=== PATIENT | female | born 1980 ===

== ENCOUNTER 2023-01-30 08:35 | Inpatient (IN) | payer OTHER ==
[~2023-01-30] VITALS: Ht 162.6 cm; Wt 81.6 kg
[2023-01-30] MEDS ORDERED: ELIQUIS5 MG PO (09:10)
[2023-01-30] MEDS ORDERED: SYNTHROID50 MCG PO (09:10)
[2023-02-05 20:47] LABS: HEMOGLOBIN 12.7 g/dL (12.0-15.00); MEAN CELL VOLUME 82.7 fL (80.00-100.00); MEAN CORPUSCULAR HEMOGLOBIN 27.7 pg (27.00-32.0); MEAN CORPUSCULAR HGB CONC 33.4 g/dl (32.0-36.0); PLATELET COUNT 198 K/uL (150-450); RED BLOOD COUNT 4.59 M/uL (4.00-6.00); RED CELL DISTRIBUTION WIDTH 13.8 % (11.5-14.5)
[2023-02-05 21:10] LABS: CALCIUM 8.2 mg/dL (8.5-10.1); CREATININE SERUM 0.64 mg/dL (0.55-1.02); GFR 100.81; POTASSIUM 3.29 mEq/L (3.5-5.1)
[2023-02-06 03:58] LABS: HEMATOCRIT 37.1 % (36.0-45.00); HEMOGLOBIN 12.5 g/dL (12.0-15.00); MEAN CELL VOLUME 81.7 fL (80.00-100.00); MEAN CORPUSCULAR HEMOGLOBIN 27.7 pg (27.00-32.0); MEAN CORPUSCULAR HGB CONC 33.9 g/dl (32.0-36.0); PLATELET COUNT 210 K/uL (150-450); RED BLOOD COUNT 4.54 M/uL (4.00-6.00); RED CELL DISTRIBUTION WIDTH 13.6 % (11.5-14.5)
[2023-02-06 04:16] LABS: CALCIUM 8.8 mg/dL (8.5-10.1); CREATININE SERUM 0.75 mg/dL (0.55-1.02); GFR 83.95; POTASSIUM 3.01 mEq/L (3.5-5.1)
== END 2023-02-07 12:06 | disposition home or self-care (01) | DRG 743 ==
LOC: O/R 02-05 06:07 → SURH 02-05 11:15 → OB/GYN 02-05 17:10 → SURH 02-05 19:00 → OB/GYN 02-07 12:06
PROVIDERS: Obstetrics & Gynecology; ADMIT Obstetrics & Gynecology Gynecologic Oncology; ATTEND Obstetrics & Gynecology Gynecologic Oncology
PROC: 0UT70ZZ Resection of Bilateral Fallopian Tubes, Open Approach (ICD-10-PCS; 2023-02-05)
PROC: 0DNW0ZZ Release Peritoneum, Open Approach (ICD-10-PCS; 2023-02-05)
PROC: 0UT90ZZ Resection of Uterus, Open Approach (ICD-10-PCS; principal; 2023-02-05 19:00)
DX: D25.0 Submucous leiomyoma of uterus (principal); N84.0 Polyp of corpus uteri; Z20.822 Contact with and (suspected) exposure to COVID-19